=== PATIENT | male | born 1995 | race Caucasian/White ===

== ENCOUNTER 2020-10-21 16:19 | Emergency (ER) | payer MEDICAID ==
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
[2020-10-21] MEDS ORDERED: Promethazine 25 MG/ML SDV IM ONE (17:48)
[2020-10-21] MEDS ORDERED: HYDROmorphone 1 MG/ML Syringe IM ONE (17:48)
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
== END 2020-10-21 18:43 | disposition home or self-care (01) ==
LOC: JD.ED 16:19
DX: T81.30XA Disruption of wound, unspecified, initial encounter (principal); Z88.1 Allergy status to other antibiotic agents; Z98.890 Other specified postprocedural states
CPT/HCPCS: 36415; 80053; 85025; 86140; 87075; 87077; 87186; 87205; 96372; 99283; J1170; J2550

== ENCOUNTER 2020-10-24 18:03 | Emergency (ER) | payer MEDICAID ==
[2020-10-24] MEDS ORDERED: oxyCODONE 5 MG Tab PO ONE (18:31)
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
== END 2020-10-24 19:08 | disposition home or self-care (01) ==
LOC: JD.ED 18:03
DX: R10.31 Right lower quadrant pain (principal); R07.89 Other chest pain; M79.602 Pain in left arm; Z88.1 Allergy status to other antibiotic agents; Z79.899 Other long term (current) drug therapy
CPT/HCPCS: 99283; A9270

== ENCOUNTER 2020-10-29 16:31 | Emergency (ER) | payer MEDICAID ==
[2020-10-29] MEDS ORDERED: Sodium Chloride 0.9% 10 ML Syringe FLUSH PRN (17:00)
[2020-10-29] MEDS ORDERED: Sodium Chloride 0.9% 1,000 ML IV STA (17:00)
[2020-10-29] MEDS ORDERED: Acetaminophen 325 MG Tab PO ONE (17:05)
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
[2020-10-29] MEDS ORDERED: Potassium Chloride 20 MEQ Tab.ER PO ONE (18:07)
== END 2020-10-29 18:45 | disposition home or self-care (01) ==
LOC: JD.ED 16:31
DX: E87.6 Hypokalemia (principal); G89.18 Other acute postprocedural pain; R10.31 Right lower quadrant pain; D64.9 Anemia, unspecified; R19.7 Diarrhea, unspecified; Z88.1 Allergy status to other antibiotic agents
CPT/HCPCS: 36415; 80053; 85025; 99284; A9270; J7030

== ENCOUNTER 2020-12-07 21:48 | Observation (INO) | payer MEDICAID ==
[2020-12-07] MEDS ORDERED: Ondansetron 4 MG/2 ML SDV IVPUSH ONE (22:25)
[2020-12-07] MEDS ORDERED: HYDROmorphone 1 MG/ML Syringe IVPUSH STA (22:25)
[2020-12-07] MEDS ORDERED: Iopamidol 612 MG/ML 100 ML Bottle IVPUSH ONE (22:30)
[2020-12-07] MEDS ORDERED: Diatrizoate Meglumine/Diatrizoate Sodium 37% 120 ML Bottle PO ONE (22:30)
[2020-12-07] MEDS ORDERED: Sodium Chloride 0.9% 1,000 ML IV SCH (22:30)
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
[2020-12-07] MEDS: Sodium Chloride 0.9% 10 ML Syringe FLUSH PRN (22:49)
[2020-12-08] MEDS: Sodium Chloride 0.9% 10 ML Syringe FLUSH PRN (00:04)
[2020-12-08] MEDS ORDERED: Potassium Chloride 20 MEQ Tab.ER PO ONE (00:49)
[2020-12-08] MEDS ORDERED: HYDROmorphone 1 MG/ML Syringe IVPUSH ONE (00:58)
[2020-12-08] MEDS ORDERED: HYDROmorphone 1 MG/ML Syringe IVPUSH PRN (03:20)
[2020-12-08] MEDS ORDERED: Ondansetron 4 MG/2 ML SDV IVPUSH PRN (03:21)
[2020-12-08] MEDS: Sodium Chloride 0.9% 1,000 ML IV SCH ×3 (05:49→19:23)
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
[2020-12-08] MEDS: Acetaminophen/HYDROcodone 325-5 MG Tab PO PRN ×4 (08:59→22:44)
[2020-12-08] MEDS: predniSONE 20 MG Tab PO ONE ×2 (08:59→09:08)
[2020-12-08] MEDS: HYDROmorphone 0.5 MG/0.5 ML Syringe IVPUSH PRN ×4 (10:12→23:22)
[2020-12-08] MEDS ORDERED: traZODone 50 MG Tab PO SCH (21:00)
[2020-12-09] MEDS: Sodium Chloride 0.9% 1,000 ML IV SCH ×2 (01:57→09:19)
[2020-12-09] MEDS: Acetaminophen/HYDROcodone 325-5 MG Tab PO PRN ×2 (03:47→10:13)
[2020-12-09] MEDS: HYDROmorphone 0.5 MG/0.5 ML Syringe IVPUSH PRN ×3 (03:48→11:57)
[2020-12-09] MEDS ORDERED: Potassium Chloride 20 MEQ Tab.ER PO ONE (07:36)
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
== END 2020-12-09 12:10 | disposition home or self-care (01) ==
LOC: JD.ED 21:48 → JD.MS 12-08 01:15
PROVIDERS: ADMIT Internal Medicine; ATTEND Internal Medicine
DX: K52.9 Noninfective gastroenteritis and colitis, unspecified (principal); K50.90 Crohn's disease, unspecified, without complications; R10.32 Left lower quadrant pain; F17.210 Nicotine dependence, cigarettes, uncomplicated; D64.9 Anemia, unspecified; E87.6 Hypokalemia; D47.3 Essential (hemorrhagic) thrombocythemia; Z88.8 Allergy status to other drugs, medicaments and biological substances; Z87.19 Personal history of other diseases of the digestive system; Z79.899 Other long term (current) drug therapy; Z98.890 Other specified postprocedural states; Z20.822 Contact with and (suspected) exposure to COVID-19
CPT/HCPCS: 36415; 74177; 74177-26; 80048; 80053; 83690; 83735; 85007; 85025; 85027; 96374; 96375; 96376; 99217; 99219; 99285; 99285-25; A9270-GY; G0378; J1170; J2405; J7030; J7512; Q9963; Q9967; U0002

== ENCOUNTER 2020-12-09 17:06 | Emergency (ER) | payer MEDICAID ==
[2020-12-09] MEDS ORDERED: Ketorolac 60 MG/2 ML SDV IM ONE (17:34)
[2020-12-09] MEDS ORDERED: Dicyclomine 10 MG Cap PO ONE (17:34)
[2020-12-09] MEDS ORDERED: Ondansetron 4 MG Tab.DIS PO ONE (17:34)
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
[2020-12-09] MEDS ORDERED: Dexamethasone 10 MG/ML SDV IM ONE (17:48)
== END 2020-12-09 19:08 | disposition home or self-care (01) ==
LOC: JD.ED 17:06
DX: K50.90 Crohn's disease, unspecified, without complications (principal); Z88.1 Allergy status to other antibiotic agents; Z72.0 Tobacco use
CPT/HCPCS: 96372; 99283; A9270; J1100; J1885; 99284